=== PATIENT | female | born 1970 | race Caucasian/White ===

== ENCOUNTER 2018-09-07 17:21 | Emergency (ER) | payer OTHER ==
[~2018-09-07] VITALS: Ht 170.2 cm; Wt 108.9 kg
[2018-09-07] MEDS ORDERED: IBUPROFEN800 MG PO (17:34)
[2018-09-07] MEDS ORDERED: MIRENA1 EACH IY (17:35)
[2018-09-07] MEDS ORDERED: KRATOM (17:35)
[2018-09-07] MEDS ORDERED: KEFLEX500 MG PO (19:17)
[2018-09-07] MEDS ORDERED: IBU600 MG PO (19:17)
== END 2018-09-07 19:59 | disposition home or self-care (01) ==
LOC: ED 17:21
DX: N10 Acute pyelonephritis (principal); I10 Essential (primary) hypertension; G43.909 Migraine, unspecified, not intractable, without status migrainosus; Z87.891 Personal history of nicotine dependence; Z91.048 Other nonmedicinal substance allergy status; Z79.899 Other long term (current) drug therapy
CPT/HCPCS: 80053; 81001; 84703; 85025; 87077; 87088; 87186; 96361; 96365; 96375; 99284-25; J0696; J1885; J7030

== ENCOUNTER 2019-10-30 19:09 | Emergency (ER) | payer OTHER ==
[~2019-10-30] VITALS: Ht 170.2 cm; Wt 106.6 kg
[~2019-10-30 19:09] MED LIST: IBU600 MG PO; IBUPROFEN800 MG PO; KEFLEX500 MG PO; KRATOM; MIRENA1 EACH IY
== END 2019-10-30 21:45 | disposition home or self-care (01) ==
LOC: ED 19:09
DX: G43.909 Migraine, unspecified, not intractable, without status migrainosus (principal); I10 Essential (primary) hypertension; Z87.891 Personal history of nicotine dependence; Z91.048 Other nonmedicinal substance allergy status; Z79.899 Other long term (current) drug therapy
CPT/HCPCS: 96361; 96374; 96375; 99283-25; J1200; J1885; J2765; J7030